=== PATIENT | female | born 1940 | race Caucasian/White ===

== ENCOUNTER 2020-12-23 09:26 | Emergency (ER) | payer MEDICARE ==
[~2020-12-23] VITALS: Ht 162.6 cm; Wt 82.0 kg
[2020-12-23 11:59] VITALS: BP 139/65
== END 2020-12-23 11:55 | disposition home or self-care (01) ==
LOC: ER 09:26
DX: Z02.89 Encounter for other administrative examinations (principal); R42 Dizziness and giddiness; R20.0 Anesthesia of skin
CPT/HCPCS: 99281